=== PATIENT | male | born 1985 | race Caucasian/White ===

== ENCOUNTER 2018-08-21 00:01 | Emergency (ER) | payer OTHER ==
[2018-08-21] MEDS ORDERED: BUPIVACAINE HCL/PF 0.25% 10 ML VIAL INJ ONE (02:15)
[2018-08-21] MEDS ORDERED: PERTUSS(ACELL),DIPH,TET VAC/PF 0.5 ML VIAL IM ONE (02:30)
[2018-08-21 02:44] VITALS: BP 132/80
== END 2018-08-21 02:45 | disposition home or self-care (01) ==
LOC: EMS 00:13
DX: S01.01XA Laceration without foreign body of scalp, initial encounter (principal); F10.129 Alcohol abuse with intoxication, unspecified; F17.210 Nicotine dependence, cigarettes, uncomplicated; F12.90 Cannabis use, unspecified, uncomplicated; Y04.2XXA Assault by strike against or bumped into by another person, initial encounter; Y93.89 Activity, other specified; Y92.89 Other specified places as the place of occurrence of the external cause; Y99.8 Other external cause status
CPT/HCPCS: 12002; 70450; 90471; 90715; 99284; 99406; J3490